=== PATIENT | female | born 1995 | race Two or more races ===

== ENCOUNTER 2023-10-05 04:30 | Inpatient (IN) | payer BC ==
[~2023-10-05] VITALS: Ht 154.9 cm; Wt 70.1 kg
[2023-10-05] MEDS ORDERED: ALBUTEROL SULF 2.5 MG/0.5ML(0.5%) NEB SOLN NEB ONE ×2 (04:45→08:15)
[2023-10-05] MEDS ORDERED: IPRATROPIUM BROM 0.5 MG/2.5ML INH SOL NEB ONE ×2 (04:45→08:15)
[2023-10-05] MEDS ORDERED: SODIUM CHLORIDE 0.9% 1,000 ML IV ONE ×2 (04:45→09:15)
[2023-10-05] MEDS ORDERED: DexAMETHasone SOD PHOS 10MG/1ML VIAL INJ IV ONE (04:45)
[2023-10-05] MEDS ORDERED: IPRATROPIUM BROM 0.5 MG/2.5ML INH SOL ONE ×2 (04:47→08:31)
[2023-10-05] MEDS ORDERED: ALBUTEROL SULF 2.5 MG/0.5ML(0.5%) NEB SOLN ONE ×2 (04:47→08:31)
[2023-10-05 05:10] VITALS: PULSE 120; RESP 20; O2SAT 95
[2023-10-05 05:18] LABS: Basophils # (auto) 0 10 ^3/uL (0-0.2); Basophils % (auto) 0.2 % (0.0-2.0); Eosinophils # (auto) 0.3 10 ^3/uL (0-0.8); Eosinophils % (auto) 2.9 % (0.0-7.0); Hematocrit 43.3 % (36.0-46.0); Hemoglobin 14.5 g/dL (12.2-16.2); Lymphocytes # (auto) 0.6 10 ^3/uL (0.4-5.4); Lymphocytes % (auto) 5.4 % (10.0-50.0); Mean Corpuscular Hemoglobin 30.6 pg (28.0-32.0); Mean Corpuscular Hgb Conc. 33.4 g/dL (32.0-36.0); Mean Corpuscular Volume 91.7 fL (80.0-100.0); Monocytes # (auto) 0.5 10 ^3/uL (0-1.3); Monocytes % (auto) 4.3 % (0.0-12.0); Neutrophils # (auto) 9.6 10 ^3/uL (1.6-8.6); Neutrophils % (auto) 87.2 % (37.0-80.0); Red Blood Cells 4.72 10^6/uL (4.0-5.20); Red Cell Distribution Width 12.5 % (11.8-14.3)
[2023-10-05] MEDS ORDERED: DexAMETHasone SOD PHOS 10MG/1ML VIAL INJ ONE ×2 (05:24→06:54)
[2023-10-05 05:35] LABS: Alanine Aminotransferase 33 U/L (7-40); Alkaline Phosphatase 55 U/L (46-116); Anion Gap 8 (5-15); Aspartate Aminotransferase 15 U/L (13-40); Blood Urea Nitrogen 5 mg/dL (9-23); Calcium 9.2 mg/dL (8.7-10.4); Carbon Dioxide 22 mmol/L (20-30); Chloride 103 mmol/L (98-107); Glucose 118 mg/dL (74-106); Magnesium 1.7 mg/dL (1.6-2.6); Potassium 3.7 mmol/L (3.5-5.1); Sodium 133 mmol/L (136-145)
[2023-10-05 05:36] LABS: Albumin 4.5 g/dL (3.2-4.8); Bilirubin, Total 0.5 mg/dL (0.2-1.0); Total Protein 6.9 g/dL (5.7-8.2)
[2023-10-05 06:36] LABS: COVID19 ANTIGEN SOFIA FIA NEGATIVE (NEGATIVE)
[2023-10-05 06:37] LABS: Rapid Influenza A Negative (Negative); Rapid Influenza B Negative (Negative)
[2023-10-05 07:50] VITALS: PULSE 125; RESP 20; O2SAT 90
[2023-10-05 10:30] LABS: Urine Bacteria MOD /hpf (None Seen); Urine Blood Negative /uL (Negative); Urine Clarity Clear (Clear); Urine Color Colorless (Yellow); Urine Protein, UAD Negative (Negative); Urine Specific Gravity 1.011 (1.001-1.035); Urine Urobilinogen Normal (Negative); Urine WBC <1 /hpf (0 - 5); Urine pH 7.5 (5.0-8.0)
[2023-10-05 12:35] LABS: Amphetamine Screen, Urine Neg (NEGATIVE); Barbiturate Scree,Urine Neg (NEGATIVE); Benzodiazephine Screen, Urine Neg (NEGATIVE); Cocaine Screen, Urine Neg (NEGATIVE); Opiate Scree,Urine Neg (NEGATIVE); Phencyclidine Screen, Urine Neg (NEGATIVE)
[2023-10-05 12:36] LABS: Cannabinoid Screen, Urine Neg (NEGATIVE)
[2023-10-05] MEDS ORDERED: ALPRAZolam 0.5 MG TAB PO ONE (13:00)
[2023-10-05] MEDS ORDERED: ALPRAZolam 0.5 MG TAB ONE (13:00)
[2023-10-05] MEDS ORDERED: MAGNESIUM SULFATE 1GM/100ML 200 ML IV ONE (14:38)
[2023-10-05] MEDS: MAGNESIUM SULFATE 1GM/100ML 100 ML IV SCH ×2 (15:04→15:35)
[2023-10-05 15:26] LABS: Base Excess -4.9 mmol/L (-2.0-2.0)
[2023-10-05] MEDS ORDERED: dilTIAZem HCL 50 MG/10 ML VIAL IV ONE (15:29)
[2023-10-05] MEDS ORDERED: hydrOXYzine 25 MG TAB or CAP PO ONE (15:30)
[2023-10-05] MEDS ORDERED: dilTIAZem 25 MG/5 ML VIAL IV ONE ×3 (15:30→16:15)
[2023-10-05] MEDS ORDERED: ACETAMINOPHEN 500 MG TAB PO ONE ×2 (15:52→16:00)
[2023-10-05] MEDS ORDERED: ASPirin 325 MG TAB ONE (15:52)
[2023-10-05] MEDS ORDERED: AMIODARONE BOLUS KIT 100 ML IV ONE ×2 (15:55→16:15)
[2023-10-05] MEDS ORDERED: ASPirin 325 MG TAB PO ONE (16:00)
[2023-10-05] MEDS ORDERED: SODIUM CHLORIDE 0.9% 500 ML IV ONE (16:00)
[2023-10-05] MEDS ORDERED: AMIODARONE 450mg/250ml AE 250 ML IV SCH (16:15)
[2023-10-05] MEDS ORDERED: hydrOXYzine 25 MG TAB or CAP ONE (16:22)
[2023-10-05] MEDS: AMIODARONE 450mg/250ml AE 250 ML IV SCH (16:47)
[2023-10-05 17:10] VITALS: BP 126/76; PULSE 166; RESP 30; TEMP 100.3; O2SAT 100
[2023-10-05 17:49] VITALS: BP 113/56; PULSE 122; RESP 22; O2SAT 99
[2023-10-05] MEDS ORDERED: ALBUTEROL SULF 2.5 MG/0.5ML(0.5%) NEB SOLN NEB PRN (18:30)
[2023-10-05] MEDS ORDERED: NITROGLYCERIN 0.4 MG SL TAB SL PRN (18:45)
[2023-10-05] MEDS ORDERED: MORPHINE SULFATE INJ 2 MG/ml SYRG IV PRN (18:45)
[2023-10-05] MEDS ORDERED: HYD1TP TOP (18:47)
[2023-10-05] MEDS ORDERED: ALBU108A5 PO (18:47)
[2023-10-05] MEDS: SODIUM CHLORIDE 0.9% 1,000 ML IV SCH (19:14)
[2023-10-05 20:00] VITALS: PULSE 128; RESP 28; O2SAT 100
[2023-10-05] MEDS ORDERED: diphenhdrAMINE HCL 50 MG/1 ML VL IV PRN (21:15)
[2023-10-05] MEDS ORDERED: LABETALOL HCL 200 MG TAB PO ONE (21:15)
[2023-10-05] MEDS ORDERED: ACETAMINOPHEN 325 MG TAB PO PRN (21:15)
[2023-10-05 21:34] VITALS: BP 140/89; PULSE 140; RESP 32; O2SAT 99
[2023-10-05] MEDS ORDERED: methylPREDNISolone SOD SUCC 40 MG/ML VL ONE (21:36)
[2023-10-05] MEDS ORDERED: ACETAMINOPHEN 325 MG TAB PO ONE (21:37)
[2023-10-05] MEDS: methylPREDNISolone SOD SUCC 40 MG/ML VL IV SCH (21:37)
[2023-10-05] MEDS ORDERED: ALBUTEROL SULF 2.5 MG/0.5ML(0.5%) NEB SOLN NEB SCH (22:00)
[2023-10-05] MEDS ORDERED: IPRATROPIUM BROM 0.5 MG/2.5ML INH SOL NEB SCH (22:00)
[2023-10-05] MEDS ORDERED: diphenhdrAMINE HCL 50 MG/1 ML VL ONE (23:04)
[2023-10-05] MEDS ORDERED: LACTULOSE 20Gm/30ML SOLN ONE (23:48)
[2023-10-05] MEDS ORDERED: LEVALBUTEROL HCL 1.25 MG/3 ML NEB ONE (23:58)
[2023-10-06] VITALS (19 sets, daily range): BP systolic 103–138; BP diastolic 65–84; PULSE 95–136; RESP 16–24; TEMP 98.2–98.8; O2SAT 95–100
[2023-10-06] MEDS: LEVALBUTEROL HCL 1.25 MG/3 ML NEB NEB SCH ×4 (00:03→18:23)
[2023-10-06 04:50] LABS: Basophils # (auto) 0 10 ^3/uL (0-0.2); Eosinophils # (auto) 0 10 ^3/uL (0-0.8); Hematocrit 40.8 % (36.0-46.0); Hemoglobin 13.7 g/dL (12.2-16.2); Lymphocytes # (auto) 0.4 10 ^3/uL (0.4-5.4); Lymphocytes % (auto) 3.1 % (10.0-50.0); Mean Corpuscular Hemoglobin 31.3 pg (28.0-32.0); Mean Corpuscular Hgb Conc. 33.5 g/dL (32.0-36.0); Mean Corpuscular Volume 93.5 fL (80.0-100.0); Monocytes # (auto) 0.4 10 ^3/uL (0-1.3); Monocytes % (auto) 3.3 % (0.0-12.0); Neutrophils # (auto) 12.1 10 ^3/uL (1.6-8.6); Neutrophils % (auto) 93.6 % (37.0-80.0); Nucleated Red Blood Cells % 0.1 %; Red Blood Cells 4.37 10^6/uL (4.0-5.20); Red Cell Distribution Width 12.6 % (11.8-14.3); White Blood Cell 12.9 10^3/uL (4.4-10.8)
[2023-10-06 04:52] LABS: Alanine Aminotransferase 29 U/L (7-40); Albumin 4.3 g/dL (3.2-4.8); Alkaline Phosphatase 45 U/L (46-116); Anion Gap 7 (5-15); Aspartate Aminotransferase 27 U/L (13-40); Calcium 8.5 mg/dL (8.7-10.4); Carbon Dioxide 21 mmol/L (20-30); Chloride 108 mmol/L (98-107); Glucose 151 mg/dL (74-106); Potassium 3.9 mmol/L (3.5-5.1); Sodium 136 mmol/L (136-145)
[2023-10-06 04:53] LABS: Bilirubin, Total 0.4 mg/dL (0.2-1.0); Total Protein 6.7 g/dL (5.7-8.2)
[2023-10-06 05:03] LABS: BUN/Creatinine Ratio 8.5 (10.0-20.0); Blood Urea Nitrogen < 5 mg/dL (9-23)
[2023-10-06] MEDS: SODIUM CHLORIDE 0.9% 1,000 ML IV SCH ×3 (08:05→21:55)
[2023-10-06] MEDS ORDERED: AMIODARONE HCL (50 MG/ ML) 3 ML VIAL IV ONE (08:54)
[2023-10-06] MEDS: methylPREDNISolone SOD SUCC 40 MG/ML VL IV SCH ×2 (10:13→21:55)
[2023-10-06] MEDS: AMIODARONE 450mg/250ml AE 250 ML IV SCH (13:15)
[2023-10-06] MEDS ORDERED: PREN-96 PO (18:04)
[2023-10-07] VITALS (18 sets, daily range): BP systolic 97–114; BP diastolic 54–64; PULSE 96–123; RESP 16–22; TEMP 98.2–98.9; O2SAT 91–100
[2023-10-07] MEDS: LEVALBUTEROL HCL 1.25 MG/3 ML NEB NEB SCH ×5 (00:29→23:46)
[2023-10-07] MEDS: AMIODARONE 450mg/250ml AE 250 ML IV SCH (04:15)
[2023-10-07 06:49] LABS: Anion Gap 8 (5-15); Carbon Dioxide 23 mmol/L (20-30); Chloride 107 mmol/L (98-107); Potassium 3.8 mmol/L (3.5-5.1); Sodium 138 mmol/L (136-145)
[2023-10-07 06:51] LABS: Calcium 8.5 mg/dL (8.5-10.1)
[2023-10-07 06:55] LABS: BUN/Creatinine Ratio 12.5 (10.0-20.0); Blood Urea Nitrogen 7 mg/dL (9-23); Glucose 160 mg/dL (74-106)
[2023-10-07 07:00] LABS: Basophils # (auto) 0 10 ^3/uL (0-0.2); Eosinophils # (auto) 0 10 ^3/uL (0-0.8); Hemoglobin 12.2 g/dL (12.2-16.2); Lymphocytes # (auto) 0.6 10 ^3/uL (0.4-5.4); Lymphocytes % (auto) 6.9 % (10.0-50.0); Mean Corpuscular Hemoglobin 31.3 pg (28.0-32.0); Mean Corpuscular Hgb Conc. 33.9 g/dL (32.0-36.0); Mean Corpuscular Volume 92.5 fL (80.0-100.0); Monocytes # (auto) 0.5 10 ^3/uL (0-1.3); Monocytes % (auto) 6.2 % (0.0-12.0); Neutrophils # (auto) 7.4 10 ^3/uL (1.6-8.6); Neutrophils % (auto) 86.9 % (37.0-80.0); Red Blood Cells 3.89 10^6/uL (4.0-5.20); Red Cell Distribution Width 12.8 % (11.8-14.3); White Blood Cell 8.5 10^3/uL (4.4-10.8)
[2023-10-07] MEDS: methylPREDNISolone SOD SUCC 40 MG/ML VL IV SCH ×2 (10:36→21:34)
[2023-10-07 10:39] LABS: Free T3 3.25 pg/mL (2.3-4.2)
[2023-10-07 10:40] LABS: Free T4 (Free Thyroxine) 1.02 ng/dL (0.89-1.76)
[2023-10-07] MEDS ORDERED: PRENATAL VITAMIN TAB PO ONE (12:30)
[2023-10-07] MEDS ORDERED: cefTRIAXone 1GM/50ML D5W 50 ML IV ONE (19:30)
[2023-10-08] VITALS (18 sets, daily range): BP systolic 98–123; BP diastolic 54–72; PULSE 84–131; RESP 16–22; TEMP 98.3–99.3; O2SAT 90–99
[2023-10-08] MEDS: LEVALBUTEROL HCL 1.25 MG/3 ML NEB NEB SCH ×4 (06:30→23:32)
[2023-10-08 06:34] LABS: Basophils # (auto) 0 10 ^3/uL (0-0.2); Basophils % (auto) 0.1 % (0.0-2.0); Eosinophils # (auto) 0 10 ^3/uL (0-0.8); Hematocrit 37.1 % (36.0-46.0); Hemoglobin 12.7 g/dL (12.2-16.2); Lymphocytes # (auto) 0.6 10 ^3/uL (0.4-5.4); Lymphocytes % (auto) 9.5 % (10.0-50.0); Mean Corpuscular Hemoglobin 31.6 pg (28.0-32.0); Mean Corpuscular Hgb Conc. 34.3 g/dL (32.0-36.0); Mean Corpuscular Volume 92.2 fL (80.0-100.0); Monocytes # (auto) 0.4 10 ^3/uL (0-1.3); Neutrophils # (auto) 5.3 10 ^3/uL (1.6-8.6); Neutrophils % (auto) 84.4 % (37.0-80.0); Red Blood Cells 4.02 10^6/uL (4.0-5.20); Red Cell Distribution Width 12.3 % (11.8-14.3); White Blood Cell 6.3 10^3/uL (4.4-10.8)
[2023-10-08 06:42] LABS: Chloride 104 mmol/L (98-107); Potassium 3.5 mmol/L (3.5-5.1); Sodium 136 mmol/L (136-145)
[2023-10-08 06:43] LABS: Anion Gap 10 (5-15); Calcium 8.6 mg/dL (8.7-10.4); Carbon Dioxide 22 mmol/L (20-30)
[2023-10-08 06:48] LABS: Glucose 140 mg/dL (74-106)
[2023-10-08 06:55] LABS: BUN/Creatinine Ratio 9.8 (10.0-20.0); Blood Urea Nitrogen < 5 mg/dL (9-23)
[2023-10-08] MEDS: cefTRIAXone 1GM/50ML D5W 50 ML IV SCH (09:46)
[2023-10-08] MEDS: methylPREDNISolone SOD SUCC 40 MG/ML VL IV SCH ×2 (09:46→21:06)
[2023-10-08] MEDS: PRENATAL VITAMIN TAB PO SCH (09:46)
[2023-10-09] VITALS (8 sets, daily range): BP systolic 100–117; BP diastolic 56–66; PULSE 80–125; RESP 18–20; TEMP 98.3–98.8; O2SAT 90–100
[2023-10-09 05:40] LABS: Anion Gap 9 (5-15); Carbon Dioxide 23 mmol/L (20-30); Chloride 104 mmol/L (98-107); Potassium 3.7 mmol/L (3.5-5.1); Sodium 136 mmol/L (136-145)
[2023-10-09 05:42] LABS: Calcium 8.8 mg/dL (8.7-10.4)
[2023-10-09 05:44] LABS: Basophils # (auto) 0 10 ^3/uL (0-0.2); Basophils % (auto) 0.1 % (0.0-2.0); Eosinophils # (auto) 0 10 ^3/uL (0-0.8); Hematocrit 38.1 % (36.0-46.0); Hemoglobin 13.3 g/dL (12.2-16.2); Mean Corpuscular Hemoglobin 31.7 pg (28.0-32.0); Mean Corpuscular Hgb Conc. 34.8 g/dL (32.0-36.0); Mean Corpuscular Volume 91.1 fL (80.0-100.0); Monocytes # (auto) 0.5 10 ^3/uL (0-1.3); Monocytes % (auto) 7.2 % (0.0-12.0); Neutrophils # (auto) 4.9 10 ^3/uL (1.6-8.6); Neutrophils % (auto) 76.7 % (37.0-80.0); Red Blood Cells 4.18 10^6/uL (4.0-5.20); Red Cell Distribution Width 12.4 % (11.8-14.3); White Blood Cell 6.4 10^3/uL (4.4-10.8)
[2023-10-09 05:46] LABS: Glucose 142 mg/dL (74-106)
[2023-10-09 06:56] LABS: BUN/Creatinine Ratio 12.5 (10.0-20.0); Blood Urea Nitrogen 7 mg/dL (9-23)
[2023-10-09] MEDS: LEVALBUTEROL HCL 1.25 MG/3 ML NEB NEB SCH ×2 (07:35→12:09)
[2023-10-09] MEDS: cefTRIAXone 1GM/50ML D5W 50 ML IV SCH (09:07)
[2023-10-09] MEDS: methylPREDNISolone SOD SUCC 40 MG/ML VL IV SCH (09:08)
[2023-10-09] MEDS: PRENATAL VITAMIN TAB PO SCH (09:08)
[2023-10-09] MEDS ORDERED: PRED20TA2 PO (11:01)
[2023-10-09] MEDS ORDERED: ALBU108A5 INH (11:42)
[2023-10-09 11:57] LABS: Base Excess 0.7 mmol/L (-2.0-2.0)
== END 2023-10-09 16:40 | disposition home or self-care (01) | DRG 831 ==
LOC: ER 04:30 → TELE 18:47 → EEVIPCON 18:47 → TELE-CENTR 10-06 15:43
PROVIDERS: ADMIT Internal Medicine Pulmonary Disease; ATTEND Internal Medicine Pulmonary Disease
DX: O99.511 Diseases of the respiratory system complicating pregnancy, first trimester (principal); J96.01 Acute respiratory failure with hypoxia; J45.42 Moderate persistent asthma with status asthmaticus; E87.1 Hypo-osmolality and hyponatremia; O99.111 Other diseases of the blood and blood-forming organs and certain disorders involving the immune mechanism complicating pregnancy, first trimester; Z3A.08 8 weeks gestation of pregnancy; O99.341 Other mental disorders complicating pregnancy, first trimester; O99.281 Endocrine, nutritional and metabolic diseases complicating pregnancy, first trimester; E05.90 Thyrotoxicosis, unspecified without thyrotoxic crisis or storm; F41.9 Anxiety disorder, unspecified; Z20.822 Contact with and (suspected) exposure to COVID-19; Z82.49 Family history of ischemic heart disease and other diseases of the circulatory system; Z83.3 Family history of diabetes mellitus
CPT/HCPCS: 36415; 36600; 71045; 76801; 80048; 80053; 80307; 81001; 82805; 83735; 84439; 84443; 84481; 84484; 85025; 85379; 87040; 87086; 87426; 87804; 93005; 93306; 94640; 96361; 96374; 99291; G0378; J1100

== ENCOUNTER → 2023-10-18 | Outpatient (CLI) | payer BC ==
[~2023-10-18] MED LIST: ALBU108A5 INH; PRED20TA2 PO; PREN-96 PO
[2023-10-18 12:21] LABS: Basophils # (auto) 0 10 ^3/uL (0-0.2); Basophils % (auto) 0.2 % (0.0-2.0); Eosinophils # (auto) 0.1 10 ^3/uL (0-0.8); Eosinophils % (auto) 0.6 % (0.0-7.0); Hematocrit 38.9 % (36.0-46.0); Hemoglobin 13.5 g/dL (12.2-16.2); Lymphocytes # (auto) 3.3 10 ^3/uL (0.4-5.4); Lymphocytes % (auto) 23.7 % (10.0-50.0); Mean Corpuscular Hemoglobin 31.4 pg (28.0-32.0); Mean Corpuscular Hgb Conc. 34.8 g/dL (32.0-36.0); Mean Corpuscular Volume 90.2 fL (80.0-100.0); Monocytes # (auto) 0.9 10 ^3/uL (0-1.3); Monocytes % (auto) 6.5 % (0.0-12.0); Neutrophils # (auto) 9.6 10 ^3/uL (1.6-8.6); Red Blood Cells 4.31 10^6/uL (4.0-5.20); Red Cell Distribution Width 12.4 % (11.8-14.3); White Blood Cell 13.9 10^3/uL (4.4-10.8)
[2023-10-18 13:05] LABS: Amphetamine Screen, Urine Neg (NEGATIVE); Barbiturate Scree,Urine Neg (NEGATIVE); Benzodiazephine Screen, Urine Neg (NEGATIVE); Cocaine Screen, Urine Neg (NEGATIVE)
[2023-10-18 13:06] LABS: Cannabinoid Screen, Urine Neg (NEGATIVE); Opiate Scree,Urine Neg (NEGATIVE); Phencyclidine Screen, Urine Neg (NEGATIVE)
[2023-10-18 13:12] LABS: Thyroid Stimulating Hormone 0.05 uIU/mL (0.55-4.78)
[2023-10-19 05:07] LABS: Varicella Zoster IgG Antibody 1012 index (Immune >165)
[2023-10-19 08:06] LABS: RPR Non Reactive (Non Reactive)
== END | disposition home or self-care (01) ==
LOC: LAB 11:35
PROVIDERS: ATTEND Obstetrics & Gynecology
DX: Z34.91 Encounter for supervision of normal pregnancy, unspecified, first trimester (principal); Z34.00 Encounter for supervision of normal first pregnancy, unspecified trimester; Z31.430 Encounter of female for testing for genetic disease carrier status for procreative management; N39.0 Urinary tract infection, site not specified; Z36.0 Encounter for antenatal screening for chromosomal anomalies; Z3A.10 10 weeks gestation of pregnancy
CPT/HCPCS: 36415; 80307; 83036; 84439; 84443; 84702; 85025; 86592; 86703; 86762; 86787; 86850; 86900; 86901; 87086; 87340

== ENCOUNTER 2024-02-19 09:37 | Observation (INO) | payer BC ==
[~2024-02-19] VITALS: Ht 152.4 cm; Wt 78.2 kg
[2024-02-19 09:47] VITALS: BP 140/71; PULSE 127; RESP 18; O2SAT 97
== END 2024-02-19 12:38 | disposition home or self-care (01) ==
LOC: ER 09:37 → LDRP 10:07 → UNDOADMOB 10:07 → LDRP 10:26
PROVIDERS: ADMIT Obstetrics & Gynecology; ATTEND Obstetrics & Gynecology
DX: O62.9 Abnormality of forces of labor, unspecified (principal); O26.892 Other specified pregnancy related conditions, second trimester; R42 Dizziness and giddiness; R00.2 Palpitations; Z3A.27 27 weeks gestation of pregnancy
CPT/HCPCS: 59025; 81002; 94760; G0378